=== PATIENT | male | born 1945 ===

== ENCOUNTER 2017-11-25 16:49 | Inpatient (IN) | payer MEDICARE ==
--- NOTE | 2017-11-25 17:32 | ED PDOC ---
Arrival/HPI - General Chief Complaint: Back Pain Time Seen by Provider: 11/25/17 16:53 Historian: Patient, Family - History of Present Illness Narrative History of Present Illness (Text): 11/25/17 17:22 Pt is a 72 yo M brought in by family for left abdominal pain approx 2 hrs ago. Pt describes the pain as intense and sharp pain in the left low back that wraps around to the LLQ. Pt adds that pain was severe enough to cause nausea but subsided after about 2 hrs. Pt had similar painwhen he was a teen but nothing since that time. PMH includes DMII, chest CT 2 yrs ago (unknown reason) and MRI of the head to r/o stroke 8-9 mnths ago. Pt states he drinks plenty of water and rarely drinks alchol or carbonated drinks. Pain at the time of history was 0/10 Time/Duration: Prior to Arrival Symptom Onset: Sudden Symptom Course: Collicky Quality: Tightness, Stabbing Severity Level: 1 Activities at Onset: Rest Context: Sitting, Standing, Walking, Home Past Medical History - Provider Review Nursing Documentation Reviewed: Yes - Travel History Have you recently traveled outside [place] w/in the past 3 mons?: No - Past History Past History: No Previous - Infectious Disease Hx of Infectious Diseases: None - Tetanus Immunization Tetanus Immunization: Unknown - Cardiac Hx Cardiac Disorders: No - Pulmonary Hx Respiratory Disorders: No - Neurological Hx Neurological Disorder: No - HEENT Hx HEENT Disorder: No - Renal Hx Renal Disorder: Yes Hx Kidney Stones: Yes - Endocrine/Metabolic Hx Endocrine Disorders: Yes Hx Diabetes Mellitus Type 2: Yes - Hematological/Oncological Hx Blood Disorders: No - Integumentary Hx Dermatological Disorder: No - Musculoskeletal/Rheumatological Hx Musculoskeletal Disorders: No - Gastrointestinal Hx Gastrointestinal Disorders: No - Genitourinary/Gynecological Hx Genitourinary Disorders: No - Psychiatric Hx Psychophysiologic Disorder: No Hx Substance Use: No Family/Social History - Physician Review Nursing Documentation Reviewed: Yes Family/Social History: No Known Family HX Smoking Status: Never Smoked Hx Alcohol Use: No Hx Substance Use: No Allergies/Home Meds Allergies/Adverse Reactions: Allergies No Known Allergies Allergy (Verified 11/25/17 16:53) Home Medications: Home Meds Medication Instructions Recorded Confirmed metFORMIN [glucOPHAGE] 500 mg PO BID 11/25/17 11/25/17 Review of Systems - Review of Systems Constitutional: Normal Respiratory: Normal. absent: SOB, Cough, Sputum, Wheezing, Other Cardiovascular: Normal. absent: Chest Pain, Palpitations, Edema, Calf Pain, BUSTOS , Orthopnea, SY, Syncope, Other Gastrointestinal: Normal, Nausea. absent: Abdominal Pain, Stool Changes, Constipation, Diarrhea, Vomiting, Appetite Changes, Hematochezia, Hematemesis, Anorexia, Food Intolerance, Other Genitourinary Male: Normal. absent: Dysuria, Frequency, Hematuria, Urinary Output Changes, Other Musculoskeletal: Normal. absent: Arthralgias, Back Pain, Neck Pain, Joint Swelling, Myalgias, Other Skin: Normal. absent: Rash, Pruritis, Skin Lesions, Laceration, Abscess, Ulcer , Cellulitis, Other Neurological: Normal. absent: Headache, Dizziness, Focal Weakness, Gait Changes , Speech Changes, SC, Facial Droop, DE, Disequilibrium, SE, Seizure, Other Endocrine: Normal. absent: Diaphoresis, Polyuria, Polydipsia, Other Physical Exam Vital Signs Reviewed: Yes Vital Signs Temp Pulse Resp BP Pulse Ox 11/25/17 21:49 98 F 75 18 119/72 11/25/17 19:08 98 F 75 19 119/72 99 11/25/17 16:56 97.9 F 77 16 177/83 H 98 Temperature: Afebrile Blood Pressure: Hypertensive Pulse: Regular Respiratory Rate: Normal Appearance: Positive for: Well-Appearing, Non-Toxic, Comfortable Pain Distress: None Mental Status: Positive for: Alert and Oriented X 3 - Systems Exam Head: Present: Atraumatic Pupils: Present: PERRL Extroacular Muscles: Present: EOMI Pharnyx: Present: Normal Neck: Present: Normal Range of Motion. No: Meningeal Signs, MIDLINE TENDERNESS , Paraspinal Tenderness, JVD, Lymphadenopathy, Bruit, Trachea Midline, Other Respiratory/Chest: Present: Clear to Auscultation, Good Air Exchange. No: Respiratory Distress, Accessory Muscle Use, Wheezes, Decreased Breath Sounds, Rales, Retracting, Rhonchi, Tachypneic, Tender to Palpation, Other Cardiovascular: Present: Regular Rate and Rhythm, Normal S1, S2 Abdomen: Present: Normal Bowel Sounds. No: Tenderness, Distention, Peritoneal Signs, Rebound, Guarding, McBurney's Point Tender, Rovsing's Sign Present, Hernias, Feeding Tubes, Ostomy Tubes, Mass/Organomegaly, Scars, Other Back: Present: Normal Inspection. No: CVA Tenderness, Midline Tenderness, Paraspinal Tenderness, Pain with Leg Raise, Decubitus Ulcer, Other Upper Extremity: Present: Normal Inspection. No: Cyanosis, Edema, Normal ROM, NORMAL PULSES, Tenderness, Swelling, Erythema, Neurovascularly Intact, Temperature Abnormalties, Capillary Refill < 2s, Deformity, Norm 2-Pt Discrimination, Other Lower Extremity: Present: Normal Inspection. No: Edema, CALF TENDERNESS, NORMAL PULSES, Cyanosis, Normal ROM, Garcia's Sign, Tenderness, Swelling, Erythema, Deformity, Temperature Abnormalties, Neurovascularly Intact, Capillary Refill < 2 s, Other Skin: Present: Warm, Dry, Normal Color. No: Rashes, Diaphoretic, Erythematous, Induration, Hot, Cold, Pale, Laceration, Abscess, Abrasion, Other Medical Decision Making ED Course and Treatment: 11/25/17 17:37 Pt is a 72 yo M brought in by family for left abdominal pain approx 2 hrs ago. Pt describes the pain as intense and sharp pain in the left low back that wraps around to the LLQ. On exam, pt is sitting upright in bed and comfortable with both his sons at bedside; No cva tenderness, Lungs CTAB, no point tenderness of the abdomen. Plan: 1. cbc w diff, cmp, ua 2. Abd CT w/o contrast 3. NPO 11/25/17 18:23 Pt req'd pain management as colic returned Morphine 4 mg ivp NS 1000cc/60 mins Zofran 4mg iv for nausea and vomiting Informed pt about CT abd finding and advised pt, and sons at bedside, that an overnight admission is warranted. Spoke with medical services coordinator about admitting pt overnight; Dr. Fischer was consulted and agreed to proceed. - Lab Interpretations Lab Results: 11/26/17 06:30 11/26/17 06:30 Lab Results 11/26/17 17:05: POC Glucose (mg/dL) 134 H 11/26/17 11:38: POC Glucose (mg/dL) 179 H 11/26/17 07:22: POC Glucose (mg/dL) 192 H 11/26/17 06:30: Sodium 139, Potassium 5.3 H, Chloride 101, Carbon Dioxide 24, Anion Gap 20, BUN 15, Creatinine 0.9, Est GFR ( Amer) > 60, Est GFR (Non- Af Amer) > 60, Random Glucose 204 H, Calcium 10.3, Total Bilirubin 1.0, AST 31, ALT 52, Alkaline Phosphatase 75, Total Protein 8.5 H, Albumin 4.6, Globulin 3.9 , Albumin/Globulin Ratio 1.2 11/26/17 06:30: WBC 12.4 H D, RBC 4.74, Hgb 15.9, Hct 45.4, MCV 95.8, MCH 33.5, MCHC 35.0, RDW 12.4, Plt Count 286, MPV 10.4, Gran % 73.5 H, Lymph % (Auto) 20.3 L, [place] % (Auto) 6.0, Eos % (Auto) 0.2 L, Baso % (Auto) 0.0, Gran # 9.13 H , Lymph # 2.5, [place] # 0.7 H, Eos # 0.0, Baso # 0.00 11/25/17 22:53: POC Glucose (mg/dL) 124 H 11/25/17 19:00: Urine Color Yellow, Urine Appearance Clear, Urine pH 6.0, Ur Specific [place] >= 1.030, Urine Protein 30 H, Urine Glucose (UA) 100 H, Urine Ketones Negative, Urine Blood Negative, Urine Nitrate Negative, Urine Bilirubin Negative, Urine Urobilinogen 0.2, Ur Leukocyte Esterase Negative, Urine RBC Negative, Urine WBC 2 - 5, Ur Epithelial Cells 3 - 4, Urine Bacteria Few 11/25/17 18:35: Sodium 138, Potassium 4.7, Chloride 102, Carbon Dioxide 22, Anion Gap 19, BUN 15, Creatinine 0.9, Est GFR ( Amer) > 60, Est GFR (Non- Af Amer) > 60, Random Glucose 218 H, Calcium 10.3, Total Bilirubin 0.6, AST 35, ALT 55, Alkaline Phosphatase 60, Total Protein 8.0, Albumin 4.4, Globulin 3.6, Albumin/Globulin Ratio 1.2 11/25/17 18:00: Hemoglobin A1c 7.7 H 11/25/17 17:20: WBC 6.5, RBC 4.47, Hgb 14.9, Hct 43.0, MCV 96.2, MCH 33.3, MCHC 34.7, RDW 12.4, Plt Count 260, MPV 10.5, Gran % 46.7 L, Lymph % (Auto) 44.5 H, [place] % (Auto) 7.4 H, Eos % (Auto) 1.2 L, Baso % (Auto) 0.2, Gran # 3.02, Lymph # 2.9, [place] # 0.5, Eos # 0.1, Baso # 0.01 - RAD Interpretation Radiology Orders: 11/25/17 17:20 ABD & PELVIS W/O PO OR IV CONT [CT] Stat 11/25/17 22:03 RENAL [US] Routine Within the proximal left ureter, there is a 5 mm obstructing calculus. There is mild left hydroureter proximally. 2. Hypodense probable cysts are visualized at the lower pole the right kidney, the largest measuring 1.4 cm in diameter. There is a small hypodense cyst of the upper pole the right kidney. Follow-up ultrasonography is recommended. 3. Cholelithiasis. 4. The prostate is mildly enlarged. 5. Several mildly dilated small bowel loops are identified within the right side of the abdomen and pelvis. Differential considerations include enteritis and partial obstruction. 6. Additional CT findings described above. - Medication Orders Current Medication Orders: Acetaminophen (Tylenol 325mg Tab) 650 mg PO Q4 PRN PRN Reason: Pain, Mild (1-3) Last Admin: 11/26/17 17:50 Dose: 650 mg BANNER Pain/Vitals Document 11/26/17 17:50 YJ (Rec: 11/26/17 17:50 YJ [facility] [id number]) Pain Reassessment Is This A Pain ReAssessment? No Sleep Is patient sleeping during reassessment? No Presence of Pain Presence of Pain Yes Pain Scale Used Pain Scale Used Numeric Location Intensity 5 Re-Assess: BANNER Pain/Vitals Document 11/26/17 19:30 KP (Rec: 11/26/17 21:02 [id number] Pain Reassessment Is This A Pain ReAssessment? Yes Sleep Is patient sleeping during reassessment? No Presence of Pain Presence of Pain No Famotidine (Pepcid) 40 mg PO HS RAVI Last Admin: 11/26/17 22:45 Dose: 40 mg Sodium Chloride (Sodium Chloride 0.9%) 1,000 mls @ 100 mls/hr IV .Q10H [facility] Last Admin: 11/27/17 04:55 Dose: 100 mls/hr eMAR Start Stop Document 11/27/17 04:55 KP (Rec: 11/27/17 04:55 [facility] Intravenous Solution Start Date 11/27/17 Start Time 04:55 Ceftriaxone Sodium (Rocephin 1 Gram Ivpb) 1 gm in 100 mls @ 100 mls/hr IVPB Q12 RAVI PRN Reason: Protocol Last Admin: 11/26/17 22:46 Dose: 100 mls/hr eMAR Start Stop Document 11/26/17 22:46 KP (Rec: 11/26/17 22:46 [id number]) Intravenous Solution Start Date 11/26/17 Start Time 22:46 Insulin Human Lispro (Humalog Med) 0 units SC ACHS RAVI PRN Reason: Protocol Last Admin: 11/26/17 23:44 Dose: Not Given Non-Admin Reason: Blood Sugar Parameter BANNER Blood Glucose Document 11/26/17 23:44 (Rec: 11/26/17 23:44 [id number]) Blood Glucose Finger Stick Blood Glucose (70-120) 154 Ondansetron HCl (Zofran Inj) 4 mg IVP Q4H PRN PRN Reason: Nausea/Vomiting Last Admin: 11/26/17 10:32 Dose: 4 mg IVP Administration Document 11/26/17 10:32 Y (Rec: 11/26/17 10:32 [id number]) Charges for Administration # of IVP Administrations 1 Oxycodone/Acetaminophen (Percocet 5/325 Mg Tab) 1 tab PO Q6H PRN PRN Reason: Pain, moderate (4-7) Stop: 11/29/17 12:57 Last Admin: 11/26/17 20:22 Dose: 1 tab BANNER Pain Assessment Document 11/26/17 20:22 KP (Rec: 11/26/17 20:22 [id number]) Pain Reassessment Is this a pain reassessment? No Sleep Is patient sleeping during reassessment? No Presence of Pain Presence of Pain Yes Location Pain Location Body Site Abdomen Description Description Intermittent Intensity of Pain at present 8 Re-Assess: MAR Pain Assessment Document 11/26/17 21:22 (Rec: 11/26/17 23:44 [id number]) Pain Reassessment Is this a pain reassessment? Yes Sleep Is patient sleeping during reassessment? No Presence of Pain Presence of Pain No Tamsulosin HCl (Flomax) 0.4 mg PO DAILY RAVI Last Admin: 11/26/17 13:33 Dose: 0.4 mg Discontinued Medications Acetaminophen (Tylenol 325mg Tab) 650 mg PO Q4 PRN PRN Reason: Pain, moderate (4-7) Last Admin: 11/26/17 11:45 Dose: 650 mg MAR Pain/Vitals Document 11/26/17 11:45 YJ (Rec: 11/26/17 11:45 YJ [facility] [id number]) Pain Reassessment Is This A Pain ReAssessment? No Sleep Is patient sleeping during reassessment? No Presence of Pain Presence of Pain Yes Pain Scale Used Pain Scale Used Numeric Location Intensity 8 Sodium Chloride (Sodium Chloride 0.9%) 1,000 mls @ 999 mls/hr IV .Q1H1M STA Stop: 11/25/17 19:19 Last Admin: 11/25/17 18:37 Dose: 999 mls/hr eMAR Start Stop Document 11/25/17 18:37 GMI (Rec: 11/25/17 18:37 GMI [id number]) Intravenous Solution Start Date 11/25/17 Start Time 18:37 End Date 11/25/17 End time 18:37 Total Infusion Time 0 Ceftriaxone Sodium (Rocephin 1 Gram Ivpb) 1 gm in 100 mls @ 100 mls/hr IVPB DAILY RAVI PRN Reason: Protocol Ceftriaxone Sodium (Rocephin 1 Gram Ivpb) 1 gm in 100 mls @ 200 mls/hr IVPB STAT STA PRN Reason: Protocol Stop: 11/25/17 21:42 Last Admin: 11/25/17 21:43 Dose: 200 mls/hr eMAR Start Stop Document 11/25/17 21:43 IT (Rec: 11/25/17 21:43 IT [id number]) Intravenous Solution Start Date 11/25/17 Start Time 21:43 End Date 11/25/17 Ceftriaxone Sodium (Rocephin 1 Gram Ivpb) 1 gm in 100 mls @ 200 mls/hr IVPB STAT STA Stop: 11/26/17 16:11 Last Admin: 11/26/17 16:55 Dose: 200 mls/hr eMAR Start Stop Document 11/26/17 16:55 YJ (Rec: 11/26/17 16:55 YJ [id number]) Intravenous Solution Start Date 11/26/17 Start Time 16:55 End Date 11/26/17 End time 17:55 Total Infusion Time 60 Morphine Sulfate (Morphine) 4 mg IVP STAT STA Stop: 11/25/17 18:18 Last Admin: 11/25/17 18:37 Dose: 4 mg BANNER Pain Assessment Document 11/25/17 18:37 GMI (Rec: 11/25/17 18:38 GMI [id number]) Pain Reassessment Is this a pain reassessment? Yes Sleep Is patient sleeping during reassessment? No Presence of Pain Presence of Pain Yes Pain Scale Used Pain Scale Used Numeric Location Pain Location Body Site Abdomen Description Description Constant Intensity of Pain at present 9 Pain Behavior Facial Grimacing Alleviating Factors/Management Distraction Techniques Relaxation Techniques Alleviating Factors Medication IVP Administration Document 11/25/17 18:37 GMI (Rec: 11/25/17 18:38 GMI [id number]) Charges for Administration # of IVP Administrations 1 Re-Assess: BANNER Pain Assessment Document 11/25/17 19:37 GMI (Rec: 11/25/17 19:50 GMI [id number]) Pain Reassessment Is this a pain reassessment? Yes Sleep Is patient sleeping during reassessment? No Presence of Pain Presence of Pain No Ondansetron HCl (Zofran Inj) 4 mg IVP STAT STA Stop: 11/25/17 18:22 Last Admin: 11/25/17 18:38 Dose: 4 mg IVP Administration Document 11/25/17 18:38 GMI (Rec: 11/25/17 18:38 GMI [id number]) Charges for Administration # of IVP Administrations 1 Disposition/Present on Arrival - Present on Arrival Any Indicators Present on Arrival: No History of DVT/PE: No History of Uncontrolled Diabetes: Yes Urinary Catheter: No History of Decub. Ulcer: No History Surgical Site Infection Following: None - Disposition Have Diagnosis and Disposition been Completed?: Yes Diagnosis: Nephrolithiasis Disposition: HOSPITALIZED Disposition Time: 19:30 (11/25/17) Patient Plan: Admission Condition: STABLE
[2017-11-25 17:45] LABS: BASO # 0.01 K/mm3 (0.0-2.0); BASO % 0.2 % (0.0-3.0); EOS # 0.1 (0.0-0.7); EOS % 1.2 % (1.5-5.0); GRAN # 3.02 (1.4-6.5); GRAN % 46.7 % (50.0-68.0); HEMOGLOBIN 14.9 g/dL (14.0-18.0); LYMPH # 2.9 (1.2-3.4); LYMPH % 44.5 % (22.0-35.0); MEAN CELL VOLUME 96.2 fl (80.0-105.0); MEAN CORPUSCULAR HEMOGLOBIN 33.3 pg (25.0-35.0); MEAN CORPUSCULAR HGB CONC 34.7 g/dl (31.0-37.0); MEAN PLATELET VOLUME 10.5 fl (7.0-11.0); MONO # 0.5 (0.1-0.6); MONO % 7.4 % (1.0-6.0); RBC 4.47 10^6/uL (3.5-6.1); RED CELL DISTRIBUTION WIDTH 12.4 % (11.5-14.5); WHITE BLOOD COUNT 6.5 10^3/ul (4.5-11.0)
[2017-11-25] MEDS ORDERED: Morphine 4 mg/ml ISec IVP STA (18:17)
[2017-11-25] MEDS ORDERED: Sodium Chloride 0.9% 1,000 ML IV STA (18:19)
[2017-11-25 19:29] LABS: URINE BILIRUBIN NEGATIVE (NEGATIVE); URINE BLOOD NEGATIVE (NEGATIVE); URINE GLUCOSE (UA) 100 mg/dL (NEGATIVE); URINE LEUKOCYTE ESTERASE NEGATIVE Leu/uL (NEGATIVE); URINE NITRATE NEGATIVE (NEGATIVE); URINE PROTEIN 30 mg/dL (<30 mg/dL); URINE UROBILINOGEN 0.2 E.U./dL (<1 E.U./dL)
[2017-11-25 19:41] LABS: ALB/GLOB RATIO 1.2 (1.1-1.8); ALBUMIN 4.4 g/dL (3.0-4.8); ALT/SGPT 55 U/L (7-56); AST/SGOT 35 U/L (17-59); BLOOD UREA NITROGEN 15 mg/dL (7-21); CALCIUM 10.3 mg/dL (8.4-10.5); GFR AFRICAN-AMERICAN > 60; GFR NON-AFRICAN AMERICAN > 60
[2017-11-25 19:46] LABS: URINE APPEARANCE CLEAR (CLEAR); URINE COLOR YELLOW (YELLOW)
[2017-11-25 19:55] LABS: URINE BACTERIA FEW (NEG); URINE RBC NEGATIVE /hpf (0-2)
--- NOTE | 2017-11-25 20:28 | CT ---
EXAM: CT Abdomen and Pelvis Without Intravenous Contrast EXAM DATE/TIME: 11/25/2017 5:20 PM CLINICAL HISTORY: The patient age is 72 years old and is male; Pain; Abdominal pain Facility exam id and description: Ct abdpelscon abd pelvis w/o po or iv cont TECHNIQUE: Axial computed tomography images of the abdomen and pelvis without intravenous contrast. All CT scans at this facility use one or more dose reduction techniques, viz.: automated exposure control; ma/kV adjustment per patient size (including targeted exams where dose is matched to indication; i.e. head); or iterative reconstruction technique. Coronal and sagittal reformatted images were created and reviewed. COMPARISON: No relevant prior studies available. FINDINGS: Lower thorax: There is a 2 mm hyperdense calcified nodule within the right lower lobe of the lung. Patchy nonspecific groundglass density is visualized within the lung bases bilaterally. There is coronary artery calcification. There is a small hiatal hernia. ABDOMEN: Liver: Unremarkable. No mass. Gallbladder and bile ducts: There is a small calcified gallstone visualized within the gallbladder. Pancreas: Normal contour. No ductal dilation. Spleen: No splenomegaly. Adrenals: No mass. Kidneys and ureters: Within the proximal left ureter, there is a 5 mm obstructing calculus. There is mild left hydroureter proximally. There is no significant hydronephrosis bilaterally. Hypodense probable cysts are visualized at the lower pole the right kidney, the largest measuring 1.4 cm in diameter. There is a small hypodense cyst of the upper pole the right kidney. Stomach and bowel: Several mildly dilated small bowel loops are identified within the right side of the abdomen and pelvis. Differential considerations include enteritis and partial obstruction. There is significant fecal material within the colon. Appendix: No findings to suggest acute appendicitis. PELVIS: Bladder: No stones. Reproductive: The prostate is mildly enlarged. ABDOMEN and PELVIS: Intraperitoneal space: No free air. Bones/joints: Hypertrophic degenerative changes are noted within the spine. Soft tissues: There is herniation of fat into the inguinal canals, right side greater than left. Vasculature: There is atherosclerotic calcification of the abdominal aorta. Additional atherosclerotic changes are visualized. No abdominal aortic aneurysm. Lymph nodes: No enlarged lymph nodes. IMPRESSION: 1. Within the proximal left ureter, there is a 5 mm obstructing calculus. There is mild left hydroureter proximally. 2. Hypodense probable cysts are visualized at the lower pole the right kidney, the largest measuring 1.4 cm in diameter. There is a small hypodense cyst of the upper pole the right kidney. Follow-up ultrasonography is recommended. 3. Cholelithiasis. 4. The prostate is mildly enlarged. 5. Several mildly dilated small bowel loops are identified within the right side of the abdomen and pelvis. Differential considerations include enteritis and partial obstruction. 6. Additional CT findings described above.
[2017-11-25] MEDS ORDERED: cefTRIAXone 1 gm 1 GM/100 ML BAG IVPB SCH (21:09)
[2017-11-25] MEDS ORDERED: cefTRIAXone 1 gm 1 GM/100 ML BAG IVPB STA (21:13)
--- NOTE | 2017-11-25 21:28 | CP.PCM.HP ---
History of Present Illness - History of Present Illness History of Present Illness: CC: flank pain Subjective: HPI: Patient is a 72 year old male with past medical history of DM who presents to the emergency department for evaluation and treatment of left sided flank pain which began today without any specific provoking events. States the pain radiates from the left flank to the left lower abdominal quadrant. The pain is described as being sharp in nature and has resolved since onset. Denies associated nausea, vomitting, and urinary symptoms. Patient denies intractable headache, fever, chills, dizziness, blurry vision, ringing in the ears, chest pain, shortness of breath, diarrhea, and constipation. ROS: 12 point review of systems negative except as indicated in HPI PMHx: DM PSHx: denies Family Hx: denies Social Hx: denies ETOH use, denies tobacco use, denies illicit drug use Medications: Please see medication reconciliation Physical Examination: - Constitutional Appears: Non-toxic, No Acute Distress - Head Exam Head Exam: atraumatic, normocephalic - Eye Exam Eye Exam: Normal appearance, PERRL. absent: Scleral icterus - ENT Exam ENT Exam: Mucous Membranes Moist - Neck Exam Neck exam: Normal Inspection - Respiratory Exam Respiratory Exam: Normal Breathing Pattern - Cardiovascular Exam Cardiovascular Exam: +S1, +S2. absent: Gallop, JVD - GI/Abdominal Exam GI & Abdominal Exam: Normal Bowel Sounds, absent: Distended, Guarding, Pulsatile Mass, Rebound, Rigid - Extremities Exam Extremities exam: Negative for: calf tenderness - Back Exam Back exam: Negative for: CVA tenderness bilaterally - Neurological Exam Neurological exam: Patient is awake, alert, responds to verbal stimuli, answers questions appropriately, follows commands, and moves extremities past midline - Psychiatric Exam Psychiatric exam: Normal Affect, Normal Mood - Skin Skin Exam: warm and dry Assessment and Plan: Patient is a 72 year old male with past medical history of DM who was admitted for evaluation and treatment of flank pain. Nephrolithasis; Hydroureter - CT of abdomen and pelvis reviewed and appreciated - Within the proximal left ureter, there is a 5 mm obstructing calculus. There is mild left hydroureter proximally. - encourage increased fluid intake - IVF NS @ 100 - strain urine - pain control with tylenol - urology consulted- appreciate recommendations Renal Cysts - CT of abdomen and pelvis reviewed and appreciated -hypodense probable cysts are visualized at the lower pole the right kidney, the largest measuring 1.4 cm in diameter. There is a small hypodense cyst of the upper pole the right kidney - renal ultrasound ordered and pending Dilated small bowel loops - identified on CT within the right side of the abdomen and pelvis - patient is passing flatus, tolerating diet, and denies current abdominal pain - no acute intervention Hx of Diabetes - hold home diabetic medications - fingersticks ACHS - insulin sliding scale- lispro medium - resume diet as carb consistent Prophylaxis - DVT ppx- scds - GI ppx- famotidine Patient case discussed with and plan approved by attending physician. 11/25/17 21:28 Present on Admission - Present on Admission Any Indicators Present on Admission: No Past Patient History - Infectious Disease Hx of Infectious Diseases: None - Tetanus Immunizations Tetanus Immunization: Unknown - Past Social History Smoking Status: Never Smoked - CARDIAC Hx Cardiac Disorders: No - PULMONARY Hx Respiratory Disorders: No - NEUROLOGICAL Hx Neurological Disorder: No - HEENT Hx HEENT Problems: No - RENAL Hx Chronic Kidney Disease: Yes Hx Kidney Stones: Yes - ENDOCRINE/METABOLIC Hx Endocrine Disorders: Yes Hx Diabetes Mellitus Type 2: Yes - HEMATOLOGICAL/ONCOLOGICAL Hx Blood Disorders: No - INTEGUMENTARY Hx Dermatological Problems: No - MUSCULOSKELETAL/RHEUMATOLOGICAL Hx Musculoskeletal Disorders: No - GASTROINTESTINAL Hx Gastrointestinal Disorders: No - GENITOURINARY/GYNECOLOGICAL Hx Genitourinary Disorders: No - PSYCHIATRIC Hx Psychophysiologic Disorder: No Hx Substance Use: No - SURGICAL HISTORY Hx Surgeries: No Meds Allergies/Adverse Reactions: Allergies Allergy/AdvReac Type Severity Reaction Status Date / Time No Known Allergies Allergy Verified 11/25/17 16:53 Results - Vital Signs Recent Vital Signs: Last Vital Signs Temp 98 F 11/25/17 19:08 Pulse 75 11/25/17 19:08 Resp 19 11/25/17 19:08 BP 119/72 11/25/17 19:08 Pulse Ox 99 11/25/17 19:08 - Labs Result Diagrams: 11/25/17 17:20 11/25/17 18:35
[2017-11-25 22:06] VITALS: BMI 24.3
[2017-11-25] MEDS: Insulin Lispro (humaLOG) MEDIUM Coverage SC SCH (23:00)
[2017-11-26] MEDS: Sodium Chloride 0.9% 1,000 ML IV SCH (00:59)
[2017-11-26 07:21] LABS: EOS % 0.2 % (1.5-5.0); GRAN # 9.13 (1.4-6.5); GRAN % 73.5 % (50.0-68.0); HEMOGLOBIN 15.9 g/dL (14.0-18.0); LYMPH # 2.5 (1.2-3.4); LYMPH % 20.3 % (22.0-35.0); MEAN CELL VOLUME 95.8 fl (80.0-105.0); MEAN CORPUSCULAR HEMOGLOBIN 33.5 pg (25.0-35.0); MEAN PLATELET VOLUME 10.4 fl (7.0-11.0); MONO # 0.7 (0.1-0.6); RBC 4.74 10^6/uL (3.5-6.1); RED CELL DISTRIBUTION WIDTH 12.4 % (11.5-14.5); WHITE BLOOD COUNT 12.4 10^3/ul (4.5-11.0)
[2017-11-26 07:36] LABS: ALB/GLOB RATIO 1.2 (1.1-1.8); ALBUMIN 4.6 g/dL (3.0-4.8); ALT/SGPT 52 U/L (7-56); AST/SGOT 31 U/L (17-59); BLOOD UREA NITROGEN 15 mg/dL (7-21); CALCIUM 10.3 mg/dL (8.4-10.5); GFR AFRICAN-AMERICAN > 60; GFR NON-AFRICAN AMERICAN > 60
[2017-11-26] MEDS: Insulin Lispro (humaLOG) MEDIUM Coverage SC SCH ×4 (08:14→23:44)
[2017-11-26] MEDS ORDERED: cefTRIAXone 1 gm 1 GM/100 ML BAG IVPB SCH (10:00)
--- NOTE | 2017-11-26 10:10 | US ---
PROCEDURE: Ultrasound of the Kidneys HISTORY: cysts COMPARISON: CT abdomen and pelvis from 11/25/2017. TECHNIQUE: Grayscale imaging was performed. FINDINGS: RIGHT KIDNEY: Measures: 11.3 cm. Normal in size, contour and echogenicity. No stone, solid mass lesion or hydronephrosis visualized. There is a 2.7 x 2.7 x 2.2 cm cluster of cysts in the lower pole. LEFT KIDNEY: Measures: 11.3 cm. Normal in size, contour and echogenicity. No stone, solid mass lesion or hydronephrosis visualized. There is mild fullness in the collecting system. OTHER FINDINGS: None. IMPRESSION: 2.7 x 2.7 x 2.2 cm cluster of cysts in the right lower pole.
[2017-11-26] MEDS ORDERED: Oxycodone/Acetaminophen 5/325 mg Tab PO PRN (12:56)
[2017-11-26] MEDS ORDERED: cefTRIAXone 2 GM IN NS 2 GM/100 ML BAG IVPB SCH (15:22)
[2017-11-26] MEDS ORDERED: cefTRIAXone 1 GM/100 ML BAG IVPB STA (15:42)
--- NOTE | 2017-11-26 18:55 | CP.PCM.PN ---
<Chrissy Rincon - Last Filed: 11/26/17 18:49> Subjective - Date & Time of Evaluation Date of Evaluation: 11/26/17 Time of Evaluation: 14:00 - Subjective Subjective: Chrissy Rincon, PGY1, Medicine Progress Note for Dr Khalil: Patient seen and examined at bedside. No acute events overnight. Pt reports improved left flank pain, improved since admission. Denies passing any renal stones, hematuria, dysuria, fever, chills, nausea, vomiting, abdominal pain. Tolerating PO diet. Objective - Vital Signs/Intake and Output Vital Signs (last 24 hours): Temp Pulse Resp BP Pulse Ox 97.8 F 71 18 169/83 H 98 11/26/17 16:00 11/26/17 16:00 11/26/17 16:00 11/26/17 16:00 11/26/17 16:00 - Medications Medications: Current Medications Acetaminophen (Tylenol 325mg Tab) 650 mg PO Q4 PRN PRN Reason: Pain, Mild (1-3) Last Admin: 11/26/17 17:50 Dose: 650 mg Famotidine (Pepcid) 40 mg PO HS RAVI Last Admin: 11/25/17 23:44 Dose: 40 mg Sodium Chloride (Sodium Chloride 0.9%) 1,000 mls @ 100 mls/hr IV .Q10H RAVI Last Admin: 11/26/17 00:59 Dose: 100 mls/hr Ceftriaxone Sodium (Rocephin 1 Gram Ivpb) 1 gm in 100 mls @ 100 mls/hr IVPB Q12 RAVI PRN Reason: Protocol Insulin Human Lispro (Humalog Med) 0 units SC ACHS RAVI PRN Reason: Protocol Last Admin: 11/26/17 17:49 Dose: Not Given Ondansetron HCl (Zofran Inj) 4 mg IVP Q4H PRN PRN Reason: Nausea/Vomiting Last Admin: 11/26/17 10:32 Dose: 4 mg Oxycodone/Acetaminophen (Percocet 5/325 Mg Tab) 1 tab PO Q6H PRN PRN Reason: Pain, moderate (4-7) Stop: 11/29/17 12:57 Tamsulosin HCl (Flomax) 0.4 mg PO DAILY RAVI Last Admin: 11/26/17 13:33 Dose: 0.4 mg - Constitutional Appears: Non-toxic, No Acute Distress, Older Than Stated Age - Head Exam Head Exam: ATRAUMATIC, NORMOCEPHALIC - Eye Exam Eye Exam: EOMI, PERRL. absent: Conjunctival injection, Nystagmus, Scleral icterus Pupil Exam: NORMAL ACCOMODATION, PERRL - ENT Exam ENT Exam: Mucous Membranes Moist - Neck Exam Neck Exam: Full ROM - Respiratory Exam Respiratory Exam: Accessory Muscle Use, Clear to Ausculation Bilateral. absent : Chest Wall Tenderness, Decreased Breath Sounds, Rales, Rhonchi, Wheezes, Respiratory Distress - Cardiovascular Exam Cardiovascular Exam: RRR, +S1, +S2. absent: Murmur - GI/Abdominal Exam GI & Abdominal Exam: Soft, Normal Bowel Sounds. absent: Distended, Tenderness, Mass, Organomegaly, Rebound - Extremities Exam Extremities Exam: Normal Inspection. absent: Calf Tenderness, Pedal Edema - Back Exam Back Exam: NORMAL INSPECTION. absent: CVA tenderness (L), CVA tenderness (R) - Neurological Exam Neurological Exam: Alert, Awake, Oriented x3 - Psychiatric Exam Psychiatric exam: Normal Affect, Normal Mood - Skin Skin Exam: Dry, Normal Color, Warm Assessment and Plan - Assessment and Plan (Free Text) Assessment: 72 year old male with past medical history of DM who was admitted for evaluation and treatment of flank pain. Nephrolithasis; Hydroureter - CT of abdomen and pelvis reviewed and appreciated - Within the proximal left ureter, there is a 5 mm obstructing calculus. There is mild left hydroureter proximally. - encourage increased fluid intake - IVF NS @ 100 - strain urine - pain control with tylenol and percocet prn - afebrile, leukocytosis 12.5 today (prev 6.5) - urology consulted- appreciate help. Recommends ureter stent placement tomorrow. Keep pt NPO after midnight. Renal Cysts - CT of abdomen and pelvis reviewed and appreciated -hypodense probable cysts are visualized at the lower pole the right kidney, the largest measuring 1.4 cm in diameter. There is a small hypodense cyst of the upper pole the right kidney - renal ultrasound 2.7x2.7x2.2 cm cluster of cysts in right lower pole. No hydronephrosis. Dilated small bowel loops - identified on CT within the right side of the abdomen and pelvis - patient is passing flatus, tolerating diet, and denies current abdominal pain - no acute intervention Hx of Diabetes - hold home diabetic medications - fingersticks ACHS - insulin sliding scale- lispro medium - resume diet as carb consistent Prophylaxis - DVT ppx- scds - GI ppx- famotidine Patient case discussed with Dr Khalil. Chrissy Rincon, PGY1 <John Paul Khalil - Last Filed: 11/28/17 14:41> Objective - Vital Signs/Intake and Output Vital Signs (last 24 hours): Temp Pulse Resp BP Pulse Ox 98.3 F 60 20 129/57 L 98 11/27/17 16:05 11/27/17 16:05 11/27/17 16:05 11/27/17 16:05 11/27/17 16:05 - Labs Labs: 11/27/17 06:30 11/27/17 06:30 Attending/Attestation - Attestation I have personally seen and examined this patient.: Yes I have fully participated in the care of the patient.: Yes I have reviewed all pertinent clinical information, including history, physical exam and plan: Yes Notes (Text): 11/28/17 14:25 Patient was seen and examined with medical coder.Agreed with assessment and plan. 72 year old male with past medical history of DM was admitted for evaluation and treatment of flank pain. CT of abdomen and pelvis reviewed and appreciated - Within the proximal left ureter, there is a 5 mm obstructing calculus. There is mild left hydroureter proximally. Patient has been evaluated by Urology and is scheduled for cystoscopy by Urology tomorrow Management plan was discussed in detail with patient .Education was provided.
[2017-11-26] MEDS: cefTRIAXone 1 gm 1 GM/100 ML BAG IVPB SCH (22:46)
[2017-11-27] MEDS: Sodium Chloride 0.9% 1,000 ML IV SCH (04:55)
[2017-11-27] MEDS: Insulin Lispro (humaLOG) MEDIUM Coverage SC SCH ×2 (07:23→12:00)
[2017-11-27 07:30] LABS: BASO # 0.01 K/mm3 (0.0-2.0); BASO % 0.1 % (0.0-3.0); EOS % 0.5 % (1.5-5.0); GRAN # 5.08 (1.4-6.5); GRAN % 59.1 % (50.0-68.0); LYMPH # 2.5 (1.2-3.4); LYMPH % 29.4 % (22.0-35.0); MEAN CORPUSCULAR HEMOGLOBIN 33.1 pg (25.0-35.0); MEAN CORPUSCULAR HGB CONC 34.5 g/dl (31.0-37.0); MEAN PLATELET VOLUME 10.5 fl (7.0-11.0); MONO # 0.9 (0.1-0.6); MONO % 10.9 % (1.0-6.0); RBC 4.23 10^6/uL (3.5-6.1); RED CELL DISTRIBUTION WIDTH 12.5 % (11.5-14.5); WHITE BLOOD COUNT 8.6 10^3/ul (4.5-11.0)
[2017-11-27 07:48] LABS: ALB/GLOB RATIO 1.3 (1.1-1.8); ALBUMIN 4.1 g/dL (3.0-4.8); ALT/SGPT 40 U/L (7-56); AST/SGOT 29 U/L (17-59); BLOOD UREA NITROGEN 15 mg/dL (7-21); CALCIUM 9.2 mg/dL (8.4-10.5); GFR AFRICAN-AMERICAN > 60; GFR NON-AFRICAN AMERICAN 60
[2017-11-27] MEDS ORDERED: Lidocaine 2% Jelly (Uro-Jet) ONE (07:50)
[2017-11-27] MEDS ORDERED: Iohexol 240 (50 ml) ONE (07:50)
[2017-11-27] MEDS ORDERED: cefTRIAXone (Rocephin) 1 gm Inj ONE (07:55)
[2017-11-27] MEDS ORDERED: Midazolam 2 MG/2 ML VIAL ONE (07:58)
[2017-11-27] MEDS ORDERED: Propofol 10 mg/ml Inj (20 ML) ONE (07:58)
[2017-11-27] MEDS ORDERED: Lidocaine 2% Inj (20ml) ONE (07:59)
--- NOTE | 2017-11-27 08:24 | CON ---
DATE: 11/26/2017 CONSULTATION CHIEF COMPLAINT: Left flank pain. HISTORY OF PRESENT ILLNESS: This is a 72-year-old male, who is seen in his room at [facility]. The patient was admitted yesterday for few days of left flank pain which became severe. He denies any fever or chills. He denies any nausea or vomiting. The patient does report a history of stones many years ago in the [place]. He reports he is voiding well. No dysuria, urinary frequency, urgency, or gross hematuria. PAST MEDICAL HISTORY: Questionable diabetes. MEDICATIONS: Include Flomax, Pepcid, Percocet, Tylenol and Zofran. ALLERGIES: NO KNOWN DRUG ALLERGIES. FAMILY HISTORY: Noncontributory. SOCIAL HISTORY: Denies EtOH use. Denies smoking or drug use. REVIEW OF SYSTEMS: , the patient is currently feeling well. He denies any further pain. He denies any fever or chills. Denies any nausea or vomiting. He has complained of some arthritic pain in his knees. Otherwise, review of systems is negative. PHYSICAL EXAMINATION: GENERAL: He is awake and alert and answering questions. He is in no acute distress. VITAL SIGNS: He has been afebrile, temperature of 98, pulse currently 72, BP 129/83, and respirations are 20. NECK: Supple. There is no adenopathy. CHEST: Reveals normal inspiratory effort. CARDIAC: Positive S1 and S2. There is no peripheral edema noted. ABDOMEN: The abdomen is soft, nontender, nondistended. There is no hepatosplenomegaly. There is no costovertebral angle tenderness. : Phallus is normal. Scrotum is normal. Testes bilaterally descended, nontender, no masses. LABORATORY DATA: On laboratory exam, WBC count of 12.4, creatinine 0.9 with GFR of greater than 60. On radiologic exam, the patient had a CT scan of the abdomen and pelvis which showed a 5 mm calculus in the proximal left ureter with mild left hydroureter. The patient also had a renal ultrasound done which showed no hydronephrosis. There is some mild fullness on the left. IMPRESSION AND PLAN: This is a 72-year-old male with upper ureteral stone. The patient is feeling well and wanted to go home. I will discuss with the patient that given his questionable history of diabetes, obstructing stone, as well as the mildly elevated white count, I think it would be better to keep him n.p.o. and place ureteral stent. The patient may be discharged home and followup for removal of the stone by either ESWL (extracorporeal shockwave lithotripsy) or laser lithotripsy. I will discuss this with the patient's medical attending. Ruben Alonzo MD
[2017-11-27] MEDS: cefTRIAXone 1 gm 1 GM/100 ML BAG IVPB SCH (09:05)
[2017-11-27] MEDS ORDERED: HYDROmorphone 0.5 mg/0.5 ml ISec IVP PRN (09:36)
[2017-11-27] MEDS ORDERED: Sodium Chloride 0.9% 1,000 ML IV SCH (09:45)
--- NOTE | 2017-11-27 11:41 | RAD ---
PROCEDURE: Fluoroscopy up to 1 hr. HISTORY: R/O STONE COMPARISON: None TECHNIQUE: Standard protocol for this study/examination. FINDINGS: Total fluoroscopic time (continuous mode) utilized during the procedure: 39.9 seconds. Total exam DLP: (mGy): 8.03 IMPRESSION: Total fluoroscopic time (continuous mode) utilized during the procedure: 11 4 retrograde study and stent placement on the left.
[2017-11-27 12:37] VITALS: RESP 20; TEMP 98.3
--- NOTE | 2017-11-27 14:50 | CP.PCM.DIS ---
<Chrissy Rincon - Last Filed: 11/27/17 15:58> Provider - Provider Date of Admission: 11/26/17 17:07 Attending physician: John Paul Khalil MD Primary care physician: Remi Dangelo MD Consults: Uro Alonzo Time Spent in preparation of Discharge (in minutes): 35 Diagnosis - Discharge Diagnosis (1) Nephrolithiasis Status: Acute Hospital Course - Lab Results Lab Results: Most Recent Lab Values WBC 8.6 10^3/ul (4.5-11.0) D 11/27/17 06:30 RBC 4.23 10^6/uL (3.5-6.1) 11/27/17 06:30 Hgb 14.0 g/dL (14.0-18.0) 11/27/17 06:30 Hct 40.6 % (42.0-52.0) L 11/27/17 06:30 MCV 96.0 fl (80.0-105.0) 11/27/17 06:30 MCH 33.1 pg (25.0-35.0) 11/27/17 06:30 MCHC 34.5 g/dl (31.0-37.0) 11/27/17 06:30 RDW 12.5 % (11.5-14.5) 11/27/17 06:30 Plt Count 272 10^3/uL (120.0-450.0) 11/27/17 06:30 MPV 10.5 fl (7.0-11.0) 11/27/17 06:30 Gran % 59.1 % (50.0-68.0) 11/27/17 06:30 Lymph % (Auto) 29.4 % (22.0-35.0) 11/27/17 06:30 [place] % (Auto) 10.9 % (1.0-6.0) H 11/27/17 06:30 Eos % (Auto) 0.5 % (1.5-5.0) L 11/27/17 06:30 Baso % (Auto) 0.1 % (0.0-3.0) 11/27/17 06:30 Gran # 5.08 (1.4-6.5) 11/27/17 06:30 Lymph # 2.5 (1.2-3.4) 11/27/17 06:30 [place] # 0.9 (0.1-0.6) H 11/27/17 06:30 Eos # 0.0 (0.0-0.7) 11/27/17 06:30 Baso # 0.01 K/mm3 (0.0-2.0) 11/27/17 06:30 Sodium 140 mmol/L (132-148) 11/27/17 06:30 Potassium 4.5 mmol/L (3.6-5.0) 11/27/17 06:30 Chloride 106 mmol/L (98-107) 11/27/17 06:30 Carbon Dioxide 25 mmol/L (21-33) 11/27/17 06:30 Anion Gap 14 (10-20) 11/27/17 06:30 BUN 15 mg/dL (7-21) 11/27/17 06:30 Creatinine 1.2 mg/dl (0.8-1.5) 11/27/17 06:30 Est GFR ( Amer) > 60 11/27/17 06:30 Est GFR (Non-Af Amer) 60 11/27/17 06:30 POC Glucose (mg/dL) 137 mg/dL (65-110) H 11/27/17 11:38 Random Glucose 158 mg/dL (70-110) H 11/27/17 06:30 Hemoglobin A1c 7.7 % (4.2-6.5) H 11/25/17 18:00 Calcium 9.2 mg/dL (8.4-10.5) 11/27/17 06:30 Total Bilirubin 1.0 mg/dL (0.2-1.3) 11/27/17 06:30 AST 29 U/L (17-59) 11/27/17 06:30 ALT 40 U/L (7-56) 11/27/17 06:30 Alkaline Phosphatase 60 U/L (38-126) 11/27/17 06:30 Total Protein 7.2 g/dL (5.8-8.3) 11/27/17 06:30 Albumin 4.1 g/dL (3.0-4.8) 11/27/17 06:30 Globulin 3.2 gm/dL 11/27/17 06:30 Albumin/Globulin Ratio 1.3 (1.1-1.8) 11/27/17 06:30 Urine Color Yellow (YELLOW) 11/25/17 19:00 Urine Appearance Clear (CLEAR) 11/25/17 19: Urine pH 6.0 (4.7-8.0) 11/25/17 19:00 Ur Specific [place] >= 1.030 (1.005-1.035) 11/25/17 19:00 Urine Protein 30 mg/dL (<30 mg/dL) H 11/25/17 19:00 Urine Glucose (UA) 100 mg/dL (NEGATIVE) H 11/25/17 19:00 Urine Ketones Negative mg/dL (NEGATIVE) 11/25/17 19: Urine Blood Negative (NEGATIVE) 11/25/17 19: Urine Nitrate Negative (NEGATIVE) 11/25/17: Urine Bilirubin Negative (NEGATIVE) 11/25/17 19: Urine Urobilinogen 0.2 E.U./dL (<1 E.U./dL) 11/25/17 19:00 Ur Leukocyte Esterase Negative Vicki/uL (NEGATIVE) 11/25/17 19:00 Urine RBC Negative /hpf (0-2) 11/25/17 19:00 Urine WBC 2 - 5 /hpf (0-6) 11/25/17 19:00 Ur Epithelial Cells 3 - 4 /hpf (0-5) 11/25/17 19:00 Urine Bacteria Few (NEG) 11/25/17 19:00 - Hospital Course Hospital Course: 72 year old male with past medical history of DM who presents to the emergency department for evaluation and treatment of left sided flank pain which began today without any specific provoking events. States the pain radiates from the left flank to the left lower abdominal quadrant. The pain is described as being sharp in nature and has resolved since onset. Denies associated nausea, vomitting, and urinary symptoms. Patient denies intractable headache, fever, chills, dizziness, blurry vision, ringing in the ears, chest pain, shortness of breath, diarrhea, and constipation. CT of abd/ pelvis- Within the proximal left ureter, there is a 5 mm obstructing calculus. There is mild left hydroureter proximally. In ED, pt received 1L NS bolus, morphine 4, zofran, rocephine IV. The following day, pt had leukocysotits 12.4 (doubled). Urology (Dr Alonzo) was consulted, placed a ureteral stent. Pt was discharged on Cefitin and to follow up with Dr Alonzo in 1 week. Discharge Exam - Head Exam Head Exam: ATRAUMATIC, NORMOCEPHALIC - Eye Exam Eye Exam: EOMI, PERRL. absent: Conjunctival injection, Scleral icterus Pupil Exam: NORMAL ACCOMODATION, PERRL - ENT Exam ENT Exam: Mucous Membranes Moist - Neck Exam Neck exam: Full Rom - Respiratory Exam Respiratory Exam: Clear to PA & Lateral. absent: Accessory Muscle Use, Chest Wall Tenderness, Prolonged Expiratory Phase, Respiratory Distress - Cardiovascular Exam Cardiovascular Exam: RRR, +S1, +S2. absent: Systolic Murmur - GI/Abdominal Exam GI & Abdominal Exam: Normal Bowel Sounds, Soft. absent: Diminished Bowel Sounds , Distended - Extremities Exam Extremities exam: normal inspection - Neurological Exam Neurological exam: Alert, Oriented x3 - Psychiatric Exam Psychiatric exam: Normal Affect, Normal Mood - Skin Skin Exam: Dry, Normal Color, Warm Discharge Plan - Discharge Medications Prescriptions: Cefuroxime Axetil [Ceftin] 500 mg PO BID 5 Days ml Oxycodone HCl/Acetaminophen [Percocet 7.5-325 mg Tablet] 1 each PO Q6H 3 Days tablet Tamsulosin [Flomax] 0.4 mg PO DAILY 14 Days cap - Follow Up Plan Condition: STABLE Disposition: HOME/ ROUTINE Instructions: Kidney Stones (GEN), Cystoscopy (DC), Heart Healthy Diet (DC), Ureteral Stent Placement (DC) Additional Instructions: - Take Flomax 0.4 mg once daily for 2 weeks. - Take Ceftin 500 mg PO two times a day for 5 days. - Follow up with PMD and Dr Alonzo in 1 week. - Return to ER if any concerns. Referrals: Remi Dangelo [Primary Care Provider] - Ruben Alonzo MD [Staff Provider] - <John Paul Khalil - Last Filed: 11/28/17 16:40> Provider - Provider Date of Admission: 11/26/17 17:07 Attending physician: John Paul Khalil MD Primary care physician: Remi Dangelo MD Hospital Course - Lab Results Lab Results: Most Recent Lab Values WBC 8.6 10^3/ul (4.5-11.0) D 11/27/17 06:30 RBC 4.23 10^6/uL (3.5-6.1) 11/27/17 06:30 Hgb 14.0 g/dL (14.0-18.0) 11/27/17 06:30 Hct 40.6 % (42.0-52.0) L 11/27/17 06:30 MCV 96.0 fl (80.0-105.0) 11/27/17 06:30 MCH 33.1 pg (25.0-35.0) 11/27/17 06: MCHC 34.5 g/dl (31.0-37.0) 11/27/17 06:30 RDW 12.5 % (11.5-14.5) 11/27/17 06:30 Plt Count 272 10^3/uL (120.0-450.0) 11/27/17 06:30 MPV 10.5 fl (7.0-11.0) 11/27/17 06:30 Gran % 59.1 % (50.0-68.0) 11/27/17 06:30 Lymph % (Auto) 29.4 % (22.0-35.0) 11/27/17 06:30 [place] % (Auto) 10.9 % (1.0-6.0) H 11/27/17 06:30 Eos % (Auto) 0.5 % (1.5-5.0) L 11/27/17 06:30 Baso % (Auto) 0.1 % (0.0-3.0) 11/27/17 06:30 Gran # 5.08 (1.4-6.5) 11/27/17 06:30 Lymph # 2.5 (1.2-3.4) 11/27/17 06:30 [place] # 0.9 (0.1-0.6) H 11/27/17 06:30 Eos # 0.0 (0.0-0.7) 11/27/17 06:30 Baso # 0.01 K/mm3 (0.0-2.0) 11/27/17 06:30 Sodium 140 mmol/L (132-148) 11/27/17 06:30 Potassium 4.5 mmol/L (3.6-5.0) 11/27/17 06:30 Chloride 106 mmol/L (98-107) 11/27/17 06:30 Carbon Dioxide 25 mmol/L (21-33) 11/27/17 06:30 Anion Gap 14 (10-20) 11/27/17 06:30 BUN 15 mg/dL (7-21) 11/27/17 06:30 Creatinine 1.2 mg/dl (0.8-1.5) 11/27/17 06:30 Est GFR ( Amer) > 60 11/27/17 06:30 Est GFR (Non-Af Amer) 60 11/27/17 06:30 POC Glucose (mg/dL) 151 mg/dL (65-110) H 11/27/17 16:37 Random Glucose 158 mg/dL (70-110) H 11/27/17 06:30 Hemoglobin A1c 7.7 % (4.2-6.5) H 11/25/17 18:00 Calcium 9.2 mg/dL (8.4-10.5) 11/27/17 06:30 Total Bilirubin 1.0 mg/dL (0.2-1.3) 11/27/17 06:30 AST 29 U/L (17-59) 11/27/17 06:30 ALT 40 U/L (7-56) 11/27/17 06:30 Alkaline Phosphatase 60 U/L (38-126) 11/27/17 06:30 Total Protein 7.2 g/dL (5.8-8.3) 11/27/17 06:30 Albumin 4.1 g/dL (3.0-4.8) 11/27/17 06:30 Globulin 3.2 gm/dL 11/27/17 06:30 Albumin/Globulin Ratio 1.3 (1.1-1.8) 11/27/17 06:30 Urine Color Yellow (YELLOW) 11/25/17 19:00 Urine Appearance Clear (CLEAR) 11/25/17 19:00 Urine pH 6.0 (4.7-8.0) 11/25/17 19:00 Ur Specific [place] >= 1.030 (1.005-1.035) 11/25/17 19:00 Urine Protein 30 mg/dL (<30 mg/dL) H 11/25/17 19:00 Urine Glucose (UA) 100 mg/dL (NEGATIVE) H 11/25/17 19:00 Urine Ketones Negative mg/dL (NEGATIVE) 11/25/17 19:00 Urine Blood Negative (NEGATIVE) 11/25/17 19:00 Urine Nitrate Negative (NEGATIVE) 11/25/17 19:00 Urine Bilirubin Negative (NEGATIVE) 11/25/17 19:00 Urine Urobilinogen 0.2 E.U./dL (<1 E.U./dL) 11/25/17 19:00 Ur Leukocyte Esterase Negative Vicki/uL (NEGATIVE) 11/25/17 19:00 Urine RBC Negative /hpf (0-2) 11/25/17 19:00 Urine WBC 2 - 5 /hpf (0-6) 11/25/17 19:00 Ur Epithelial Cells 3 - 4 /hpf (0-5) 11/25/17 19:00 Urine Bacteria Few (NEG) 11/25/17 19:00 Attending/Attestation - Attestation I have personally seen and examined this patient.: Yes I have fully participated in the care of the patient.: Yes I have reviewed all pertinent clinical information, including history, physical exam and plan: Yes Notes (Text): 11/28/17 16:38 Patient was seen and examined with medical accounting clerk.Agreed with assessment and plan. 72 year old male with past medical history of DM was admitted for evaluation and treatment of flank pain. CT of abdomen and pelvis reviewed and appreciated - Within the proximal left ureter, there is a 5 mm obstructing calculus. There is mild left hydroureter proximally. Patient was evaluated by Urology and underwent cystoscopy and left ureter stent placement.His pain is improved.He is afebrile, feeling better.He will be discharged home and will follow up with PCP and Urology. Management plan was discussed in detail with patient .Education was provided.
[2017-11-27 17:06] VITALS: BP 129/57; PULSE 60; O2SAT 98
--- NOTE | 2017-11-27 17:30 | CARD ---
APPROVED REPORT EKG Measurement Heart [id number] <Conclusion> Normal sinus rhythm Normal ECG
--- NOTE | 2017-11-28 08:41 | OP ---
PROCEDURE DATE: 11/27/2017 PREOPERATIVE DIAGNOSIS: Obstructing left ureteral calculus. POSTOPERATIVE DIAGNOSIS: Obstructing left ureteral calculus. PROCEDURE: Cystoscopy, left retrograde pyelogram, insertion of a left ureteral stent. ATTENDING SURGEON: Dr. Ruben Alonzo. ANESTHESIA: General. SPECIMENS: There were none. DRAINS: A 6 x 24 left ureteral stent. COMPLICATIONS: There were none. OPERATIVE FINDINGS: After informed consent was obtained, the patient was taken to operating room, placed on operating table. Anesthesia was then administered. The patient was then placed in dorsal lithotomy position and prepped and draped in usual sterile fashion. A 21-Persian cystoscope was placed in the patient's urethra and advanced proximally under direct vision until the bladder was entered. A full survey inspection of bladder was then performed which revealed no stones, tumors or foreign bodies of the bladder. Both ureteral orifices were visualized and appeared within normal limits. On fluoroscopy, a calcific density was noted in the area of the right upper ureter. At this point, a [place] catheter was introduced through the cystoscope and guided into the left ureteral orifice. The calcific density was noted in the region of the left upper ureter. Once inside the orifice, contrast was then instilled into the system doing real-time fluoroscopy. There was some J hooking of the left ureter and the noted calcification appeared to be in the upper portion of the ureter. The ureter above this point was mildly dilated. There was fullness of the renal pelvis and mild hydronephrosis. At this point, a sensor wire was obtained. The sensor wire was passed through the open-ended ureteral catheter advanced up the ureter under fluoroscopic guidance. The wire was able to be manipulated past the calculus and coiled in the upper collecting system. The open-ended ureteral catheter was then removed and a 6 x 24 stent was obtained. The stent was passed through the cystoscope over the wire and into the left ureter. The stent was advanced proximally under direct and fluoroscopic guidance until it was in at the appropriate position. When the stent was then placed, guidewire was removed. A coil was seen in the renal pelvis and upper collecting system on fluoroscopy. A coil was seen in bladder on cystoscopy. At this point, the procedure was completed, the bladder was drained. The cystoscope was removed. The patient tolerated procedure well and was taken to the recovery room awake in stable condition. Ruben Alonzo MD [facility] # [id number]
== END 2017-11-27 18:47 | disposition home or self-care (01) | DRG 694 ==
LOC: ED 16:49 → ERH 20:53 → 5RNO 23:12 → OBSVTOIN 11-26 17:07
PROVIDERS: ADMIT Internal Medicine; ATTEND Internal Medicine
PROC: BT1F1ZZ Fluoroscopy of Left Kidney, Ureter and Bladder using Low Osmolar Contrast (ICD-10-PCS; 2017-11-27)
PROC: 0T778DZ Dilation of Left Ureter with Intraluminal Device, Via Natural or Artificial Opening Endoscopic (ICD-10-PCS; principal; 2017-11-27 08:00)
DX: N20.1 Calculus of ureter (principal); N13.4 Hydroureter; N28.1 Cyst of kidney, acquired; E11.9 Type 2 diabetes mellitus without complications; Z79.84 Long term (current) use of oral hypoglycemic drugs